=== PATIENT | female | born 1990 | race African-American/Black ===

== ENCOUNTER 2018-08-13 12:16 | Inpatient (IN) | payer OTHER ==
[~2018-08-13] VITALS: Ht 165.1 cm; Wt 79.0 kg
[2018-08-13] MEDS ORDERED: AZTREONAM 500 MG in DEXTROSE 5% WATER 50 ML IV ONE (13:00)
[2018-08-13] MEDS ORDERED: LEVOFLOXACIN 500MG PREMIX 100 ML IV ONE (13:00)
[2018-08-13] MEDS ORDERED: SODIUM CHLORIDE 0.9% 1000ML BAG (SEPSIS BOLUS) IV ONE (13:00)
[2018-08-13 13:27] LABS: INR 1.1; PROTHROMBIN TIME 11.1 sec (9.6-11.0)
[2018-08-13 13:28] LABS: CHLORIDE 101 mEq/L (98-107)
[2018-08-13 13:29] LABS: HEMATOCRIT. 38.8 % (36.0-48.0); HEMOGLOBIN. 12.9 g/dL (12.0-16.0); MEAN CORPUSCULAR HEMOGLOBIN 29.4 pg (28.0-32.0); MEAN CORPUSCULAR VOLUME 88.5 fL (81.0-99.0); RED BLOOD CELL COUNT 4.39 mill/uL (4.2-5.4); RED CELL DISTRIBUTION WIDTH 13.8 % (11.6-14.6)
[2018-08-13 13:54] LABS: PLATELET ESTIMATE NORMAL
[2018-08-13 13:57] LABS: PLATELET 268 x1000/uL (130-400)
[2018-08-13 15:47] LABS: CLARITY URINE CLOUDY (CLEAR); COLOR URINE ORANGE (YELLOW); KETONES URINE TRACE (NEGATIVE); LEUKOCYTE ESTERASE URINE 3+ (NEGATIVE); NITRITE URINE NEGATIVE (NEGATIVE); OCCULT BLOOD URINE 3+ (NEGATIVE); PROTEIN URINE 1+ (NEGATIVE); UROBILINOGEN URINE 0.2 E.U./dL (0.2-1.0)
[2018-08-13 15:57] VITALS: BP 128/63
[2018-08-13] MEDS: SODIUM CHLORIDE 0.9% 1,000 ML IV SCH (16:13)
[2018-08-13] MEDS ORDERED: DIPHENHYDRAMINE 50MG/ML VIAL IV PRN (16:15)
[2018-08-13] MEDS ORDERED: DOCUSATE SODIUM 100MG CAPSULE PO PRN (16:15)
[2018-08-13] MEDS ORDERED: HYDROCODONE/ACETAMINOPHEN 5/325MG TABLET PO PRN (16:15)
[2018-08-13] MEDS ORDERED: MAGNESIUM/ALUMINUM HYDROXIDE/SIMETHICONE 30ML UDC PO PRN (16:15)
[2018-08-13] MEDS ORDERED: ONDANSETRON HCL 4MG/2ML INJ IV PRN (16:15)
[2018-08-13] MEDS ORDERED: ACETAMINOPHEN 650MG SUPP PR PRN (16:15)
[2018-08-13] MEDS ORDERED: IPRATROPIUM/ALBUTEROL 0.5-3(2.5)MG/3ML NEB INH PRN (16:15)
[2018-08-13] MEDS ORDERED: GUAIFENESIN 200MG/10ML SUGAR FREE UDC PO PRN (16:15)
[2018-08-13] MEDS ORDERED: ACETAMINOPHEN 650MG/20.3ML UDC GT PRN (16:15)
[2018-08-13] MEDS ORDERED: CLONIDINE 0.1MG TABLET PO PRN (16:15)
[2018-08-13] MEDS ORDERED: NA PHOS,M-B/NA PHOS,DI-BA ENEMA 118ML PR PRN (16:15)
[2018-08-13 16:21] LABS: *AMPHETAMINES SCREEN URINE NEGATIVE (NEGATIVE); *BARBITURATES SCREEN URINE NEGATIVE (NEGATIVE); *BENZODIAZEPINES SCREEN URINE NEGATIVE (NEGATIVE); *COCAINE SCREEN URINE NEGATIVE (NEGATIVE)
[2018-08-13 16:22] LABS: METHADONE URINE SCREEN NEGATIVE (NEGATIVE); OPIATES URINE SCREEN NEGATIVE (NEGATIVE); PHENCYCLIDINE URINE SCREEN NEGATIVE (NEGATIVE)
[2018-08-13 16:24] LABS: CANNABINOID URINE SCREEN PRESUMTIVE POSITIVE (NEGATIVE)
[2018-08-13] MEDS: ENOXAPARIN 40MG/0.4ML SYR SUBCUT SCH (17:00)
[2018-08-13 17:30] VITALS: BP 128/69
[2018-08-13] MEDS ORDERED: AZTREONAM 1 G in DEXTROSE 5% WATER 50 ML IV SCH (18:00)
[2018-08-13 20:00] VITALS: BP 108/71
[2018-08-13 20:00] LABS: UCG SCREEN POSITIVE
[2018-08-13] MEDS: SODIUM CHLORIDE 0.9% INJ 3ML FLUSH IVF SCH (22:00)
[2018-08-13] MEDS ORDERED: AMPICILLIN 1,000 MG in SODIUM CHLORIDE 0.9% 50 ML IV SCH (22:00)
[2018-08-13 22:11] VITALS: BP 104/67
[2018-08-13 22:39] LABS: HCG SCREEN POSITIVE
[2018-08-13] MEDS: ACETAMINOPHEN 325MG TABLET PO PRN (23:12)
[2018-08-14] VITALS (12 sets, daily range): BP systolic 93–145; BP diastolic 61–96
[2018-08-14] MEDS: AZTREONAM 1 G in DEXTROSE 5% WATER 50 ML IV SCH ×3 (00:28→23:18)
[2018-08-14] MEDS: SODIUM CHLORIDE 0.9% 1,000 ML IV SCH ×3 (02:33→22:06)
[2018-08-14] MEDS: SODIUM CHLORIDE 0.9% INJ 3ML FLUSH IVF SCH ×3 (06:00→22:05)
[2018-08-14 06:41] LABS: HEMATOCRIT. 32.4 % (36.0-48.0); HEMOGLOBIN. 10.9 g/dL (12.0-16.0); MEAN CORPUSCULAR HEMOGLOBIN 29.9 pg (28.0-32.0); MEAN CORPUSCULAR VOLUME 89.2 fL (81.0-99.0); MEAN PLATELET VOLUME 9.6 fl (7.4-10.4); PLATELET 192 x1000/uL (130-400); RED BLOOD CELL COUNT 3.63 mill/uL (4.2-5.4); RED CELL DISTRIBUTION WIDTH 13.7 % (11.6-14.6)
[2018-08-14 08:27] LABS: CHLORIDE 105 mEq/L (98-107)
[2018-08-14 08:34] LABS: LDL CHOLESTEROL 55 mg/dL (5-100)
[2018-08-14 08:36] LABS: HDL CHOLESTEROL 62 mg/dL (40-59)
[2018-08-14] MEDS: ACETAMINOPHEN 325MG TABLET PO PRN ×2 (10:23→18:30)
[2018-08-14] MEDS ORDERED: LEVOFLOXACIN 500MG PREMIX 100 ML IV SCH (13:00)
[2018-08-14 14:56] LABS: PLATELET ESTIMATE NORMAL
[2018-08-14] MEDS: ENOXAPARIN 40MG/0.4ML SYR SUBCUT SCH (17:00)
[2018-08-15] VITALS (10 sets, daily range): BP systolic 106–129; BP diastolic 60–91
[2018-08-15] MEDS: ACETAMINOPHEN 325MG TABLET PO PRN (02:41)
[2018-08-15] MEDS: SODIUM CHLORIDE 0.9% INJ 3ML FLUSH IVF SCH ×2 (06:13→13:43)
[2018-08-15] MEDS: SODIUM CHLORIDE 0.9% 1,000 ML IV SCH (07:55)
[2018-08-15] MEDS: AZTREONAM 1 G in DEXTROSE 5% WATER 50 ML IV SCH (11:31)
[2018-08-15 12:22] LABS: HEMATOCRIT. 31.9 % (36.0-48.0); HEMOGLOBIN. 10.7 g/dL (12.0-16.0); MEAN CORPUSCULAR HEMOGLOBIN 29.8 pg (28.0-32.0); MEAN CORPUSCULAR VOLUME 88.5 fL (81.0-99.0); MEAN PLATELET VOLUME 9.5 fl (7.4-10.4); PLATELET 207 x1000/uL (130-400); RED CELL DISTRIBUTION WIDTH 13.7 % (11.6-14.6)
[2018-08-15 12:33] LABS: CHLORIDE 108 mEq/L (98-107)
[2018-08-15 13:22] LABS: PLATELET ESTIMATE NORMAL
[2018-08-15] MEDS: ENOXAPARIN 40MG/0.4ML SYR SUBCUT SCH (17:00)
[2018-08-16 04:20] LABS: HIV SCREEN 4G Non Reactive (Non Reactive)
== END 2018-08-15 18:15 | disposition home or self-care (01) | DRG 779 ==
LOC: ER 12:31 → 3WST 13:18 → EDBEDREQ 13:22 → EDBEDREQTM 13:22 → ENRESERV 13:25
PROVIDERS: ADMIT Family Medicine; ATTEND Family Medicine
DX: O07.37 Sepsis following failed attempted termination of pregnancy (principal); O07.3 Failed attempted termination of pregnancy with other and unspecified complications; Z88.1 Allergy status to other antibiotic agents; O07.39 Failed attempted termination of pregnancy with other complications; D64.9 Anemia, unspecified; F12.90 Cannabis use, unspecified, uncomplicated
CPT/HCPCS: 36415; 71045; 76830; 76856; 80061; 80305; 81025; 83605; 84145; 84484; 84702; 84703; 87389; 93005; 99291; J1650; J1956; J3490; J7030; J7060